=== PATIENT | female | born 1965 | race African-American/Black ===

== ENCOUNTER 2021-10-13 12:22 | Emergency (ER) | payer BC, SELFPAY ==
--- NOTE | ~2021-10-13 | CT_ITS ---
EXAMINATION: CT HEAD WITHOUT CONTRAST CLINICAL INFORMATION: Trauma. COMPARISON: None TECHNIQUE: Contiguous axial imaging was performed from the skull base to vertex without intravenous administration of contrast. This CT examination was performed using dose optimization techniques as appropriate, variously including the following: *Automated exposure control *Adjustment of mA and/or kV according to patient size (this includes techniques or standardized protocols for targeted exams where dose is matched to indication/reason for exam; i.e. extremities or head) *Use of iterative reconstruction technique DLP: 682 mGy-cm FINDINGS: There is no evidence of acute intracranial hemorrhage or territorial infarction. No abnormal mass effect or midline shift is seen. Garber to white matter differentiation is well preserved. No extra-axial fluid collections are identified. The ventricles are normal in size. There is no abnormal attenuation within the brain parenchyma. Partially empty sella The osseous structures and soft tissues are normal. The mastoid air cells and visualized portions of the paranasal sinuses are well aerated. CT/CT head/brain wo con IMPRESSION: * No acute intracranial pathology. * Incidental note made of a partially empty sella. This can be seen as an isolated incidental finding with no clinical significance, however can also be seen in the setting of idiopathic intracranial hypertension.
[2021-10-13 14:05] VITALS: BP 133/84; PULSE 80; RESP 18; TEMP 37; O2SAT 98; BMI 29.9
--- NOTE | 2021-10-13 15:45 | ED.HEATRA ---
HPI - Head Injury General Chief complaint: Head Injury Stated complaint: Head inj 10/11 Time Seen by Provider: 10/13/21 15:36 Source: patient Mode of arrival: ambulatory Limitations: no limitations History of Present Illness HPI Narrative: 56-year-old female presenting to the ED with complaints of intermittent head pain / headaches with associated intermittent blurry vision, difficulty concentrating and intermittent nausea for the past 2 days worse today after Tuesday she was loading something onto a car and sustained a head injury. She denies loss of consciousness or being on any blood thinners. She denies neck injury or pain. She denies any other injuries complaints or concerns at this time. Complaint: head injury and head pain Onset (ago): day(s) (2) Place: other Loss of Consciousness: no Location of injury: frontal Severity: mild Quality: aching Radiation: none Other Injuries: none Associated symptoms: nausea Related Data Previous Rx's Medication Instructions Recorded ondansetron 4 mg disintegrating 4 mg PO Q6H nausea and vomiting 10/13/21 tablet #14 tabs Allergies Allergy/AdvReac Type Severity Reaction Status Date / Time No Known Allergies Allergy Verified 10/13/21 14:04 [No Known Allergies*] Review of Systems Review of Systems: Constitutional : No changes in activity, No lethargy, No recent prior head injury, No agitation, No increased fussiness ENT/Mouth : No Ear Pain, No Nasal discharge/drainage Eyes: + intermittent blurry vision, No Eye Pain, No Swelling, No Redness, No Foreign Body Cardiovascular : No Chest Pain, No SOB Respiratory : No Cough Gastrointestinal : + Nausea, No Vomiting, No abdominal Pain Genitourinary : No Dysuria, No Urinary Frequency, No Urinary Incontinence, No Urgency, No Flank Pain Musculoskeletal : No joint pain, No neck stiffness, No back pain/injury Skin : No lacerations Neuro : No unsteady gait, No Paresthesias, No Loss of Consciousness, No altered mental status, No dizziness, + Headache due to head injury Denies past medical history of HIV, recent trauma, coagulopathy, recent spinal/ epidural procedure, new medication, URI symptoms, close contacts with similar symptoms, tick bite, or known CO2 exposure. Yes all other systems are reviewed and are negative PMFSH Past Medical History Attestation statement: The following information was validated with the patient. Source: old records reviewed and nursing notes reviewed Social History Social History Advance Directives: No Advance Directives Information Provided: Yes Physical Exam Vital Signs: Vital Signs: Last Vital Signs Temp 98.6 F 10/13/21 14:05 Pulse 80 10/13/21 14:05 Resp 18 10/13/21 14:05 BP 133/84 10/13/21 14:05 Pulse Ox 98 10/13/21 14:05 O2 Del Method 10/13/21 14:05 BMI result Body Mass Index 29.9 Vital signs have been reviewed as normal and appeared to be correct. Blood pressure normal. Heart rate normal. Respiration rate normal. Temperature normal. Oxygen saturation normal. Appearance: Alert. Oriented X3. No acute distress. Head: Normal external exam. Normocephalic. Atraumatic. Able to rotate head bilaterally. Eyes: PERRLA. EOMI. No nystagmus noted. Conjunctiva and sclera normal. Eyelids normal. Corneal reflex normal. ENT: EAC normal. TM's Normal. Hearing normal. Pharynx normal. Uvula midline. tongue midline. Moist mucous membranes. No trismus noted. No drooling noted. No muffled voice noted. Neck: Normal inspection. Neck supple. FROM. No adenopathy. Thyroid Normal. No meningeal signs. No neck mass noted. CVS: Normal heart rate and rhythm. Heart sound normal. No murmurs noted. Pulses normal throughout. Respiratory: No respiratory distress. Painless inspiration. Breath sounds normal. No wheezes/rales/rhonchi noted. Chest nontender. No accessory muscle usage noted or decreased air movement noted. Back: Full range of motion noted. Skin: Skin warm and dry. Normal skin color. Normal skin turgor. No rashes/lesions/lacerations noted. Extremities: Extremities exhibit normal range of motion. Extremities nontender. Able to shrug shoulders bilaterally and keep up against resistance. Neuro: Oriented X 3. No motor deficit. No sensory deficit. Reflexes normal. Moving all extremities. No focal motor deficits. Cranial nerves II-XI intact bilaterally. Facial strength normal. Normal cognition. Speech normal. Gait normal. Strength 5/5 throughout. Muscle tone normal throughout. Course Course Course Narrative: Patient most likely post concussive syndrome. Will obtain a CT scan of brain without contrast if negative will DC home with symptomatic treatment instructions return if any new or worsening symptoms. Patient understands agrees with this plan. Reevaluation(s) Reevaluation #1: CT scan negative for any acute processes although incidentally note made of partially empty sella otherwise no other acute processes. Therefore printed out the results and given to the patient explained to her that she should follow-up with her PCP for further evaluation treatment. Patient understands agrees with this plan. Time: 16:26 [facility] - Head Injury Medical Records Attestation: I reviewed the patient's medical records. Imaging Data CT scan of brain without contrast: Attestation: I personally reviewed and interpreted this imaging study as follows: Radiologist's impression: DLP: 682 mGy-cm FINDINGS: There is no evidence of acute intracranial hemorrhage or territorial infarction. No abnormal mass effect or midline shift is seen. Garber to white matter differentiation is well preserved. No extra-axial fluid collections are identified. The ventricles are normal in size. There is no abnormal attenuation within the brain parenchyma. Partially empty sella The osseous structures and soft tissues are normal. The mastoid air cells and visualized portions of the paranasal sinuses are well aerated. ? CT/CT head/brain wo con IMPRESSION: *? No acute intracranial pathology. *? Incidental note made of a partially empty sella. This can be seen as an isolated incidental finding with no clinical significance, however can also be seen in the setting of idiopathic intracranial hypertension. Discharge Plan Discharge Clinical Impression: Closed head injury, Postconcussion syndrome, Empty sella turcica Patient Disposition: Home, Self-Care Instructions: Head Injury (ED), Post Concussion Syndrome (ED) Prescriptions: New ondansetron 4 mg tablet,disintegrating 4 mg PO Q6H Qty: 14 0RF Referrals: Physician,Unknown J [Primary Care Provider] - 2 days (your pcp) Stand Alone Forms: Work/School Release
== END 2021-10-13 16:34 | disposition home or self-care (01) ==
PROVIDERS: Emergency Provider Student in an Organized Health Care Education/Training Program
DX: S06.0X0A Concussion without loss of consciousness, initial encounter (principal); W22.8XXA Striking against or struck by other objects, initial encounter; E23.6 Other disorders of pituitary gland; Y93.89 Activity, other specified; Y92.810 Car as the place of occurrence of the external cause; Y99.9 Unspecified external cause status
CPT/HCPCS: 70450; 99282; 99284

== ENCOUNTER 2023-02-25 10:50 | Outpatient (AMB) | payer BC, SELFPAY ==
--- NOTE | 2023-02-25 11:36 | AM.OFFWIN_ITS ---
Intake Vital Signs 02/25/23 11:49 Height 5 ft 5 in Weight 180 lb BMI 30.0 BP 126/70 Blood Pressure Location Rt brachial Position Sitting Pulse 97 Pulse Source Pulse Oximeter Temp 97.8 F Temp Source Temporal Artery Scan Pulse Oximetry (%) 100 Oxygen Delivery Method Room Air Intake Visit Reasons: EP, sore throat, cough ([phone]) Intake Note: Pt is here c/o sore throat, and cough. Patient Tobacco Use Status: Never used Tobacco Allergies No Known Allergies [No Known Allergies*] Allergy (Verified 02/25/23 11:36) HPI HPI Comments History of Present Illness Details This is a 57-year-old female who presents to the office today for sick visit. Patient complaining of viral URI symptoms x1 week including nasal congestion, rhinorrhea, sore throat, myalgias, and dry cough. She denies any fevers or patient reports being exposed to COVID-19 at work and she is requesting further testing. [facility] Social History Patient Tobacco Use Status: Never used Tobacco Review of Systems Const All systems reviewed & are unremarkable except as noted in HPI and below Reports no additional complaints Eyes Reports no additional complaints ENT Reports no additional complaints Card Reports no additional complaints Resp Reports no additional complaints GI Reports no additional complaints Reports no additional complaints Musc Reports no additional complaints Skin/Breast Reports system reviewed and no additional complaints, except as documented Neuro Reports no additional complaints Psych Reports no additional complaints Endo Reports no additional complaints Bill/Lymph Reports no additional complaints Aller/Immun Reports no additional complaints Physical Exam Vital Signs: Last Vital Signs Temp 97.8 F 02/25/23 11:49 Pulse 97 02/25/23 11:49 BP 126/70 02/25/23 11:49 Pulse Ox 100 02/25/23 11:49 Oxygen Delivery Method Room Air 02/25/23 11:49 BMI result Body Mass Index 30.0 Const Other: Vital signs reviewed. Constitutional: Non-toxic appearing. No acute distress. Well-developed and well-nourished. HEENT: Normocephalic and atraumatic. Tympanic membranes without erythema, edema, or bulging bilaterally. External auditory canals without erythema or edema bilaterally. Moist mucous membranes. No pharyngeal erythema or exudates. Skin: Warm and dry. No rashes or lesions noted. Neck: Full and painless range of motion. No cervical lymphadenopathy. Cardio: Regular rate and rhythm. No murmurs, gallops, or rubs. No lower extremity edema. No JVD. Pulmonary: No respiratory distress. No accessory muscle usage. Clear to auscultation bilaterally without wheezing, crackles, or rhonchi. Gastrointestinal: Soft, nontender, and nondistended in all 4 quadrants. Normoactive bowel sounds in all 4 quadrants. Genitourinary: No CVA tenderness. Musculoskeletal: Normal range of motion in joints throughout the body. No deformity or other signs of injury. Neuro: Alert and oriented x4. Cranial nerves 2-12 grossly intact. No focal deficits appreciated. Psych: Normal mood and affect. Results AMB Rapid Strep AMB Rapid Strep Negative Last Edit by Purnima Timmons CMA on 02/25/23 11:56 Results Reviewed Results Reviewed: Laboratory Last Values Strep Scn Rapid Clinic Negative 02/25/23 11:55 Assessment & Plan Assessment & Plan (1) Viral URI with cough: Code(s): J06.9 - Acute upper respiratory infection, unspecified Plan This is a 57-year-old female presenting to the office complaining of viral URI symptoms x1 week. She reports contact with COVID-19 at work and she is requesting testing. COVID/flu/ RSV sent. History and physical most consistent with a viral upper respiratory tract infection. Patient was reassured this is a self-limiting illness. Recommended symptomatic management including rest, increased fluids, advil/tylenol for pain/fever, and over the counter throat lozenges/decongestants. Patient advised to follow up here or go to the emergency room for worsening/persistent symptoms. Patient verbalized understanding and is agreeable with the plan. Orders: Orders AMB Rapid Strep Screen Today Z13.9 - Encounter for screening, unspecified Eladio Benites MD SARS-CoV2/FLU/RSV Today R09.89 - Other specified symptoms and signs involving the circulatory and respiratory systems CHACHO Mccormick Coding Level of Care Code Est Pt Level 3 (85822) Diagnoses Viral URI with cough J06.9
[2023-02-25 11:49] VITALS: BP 126/70; PULSE 97; TEMP 36.6; O2SAT 100
== END 2023-02-25 12:50 | disposition home or self-care (01) ==
PROVIDERS: Visit Provider Physician Assistant Medical
DX: J06.9 Acute upper respiratory infection, unspecified (principal); Z13.9 Encounter for screening, unspecified
CPT/HCPCS: 87880; 99213

== ENCOUNTER 2023-02-25 14:10 | Outpatient (REF) | payer BC, SELFPAY ==
[2023-02-25 15:46] LABS: Influenza A PCR NEGATIVE (Negative); Influenza B PCR NEGATIVE (Negative); Resp Syncy Virus RNA Qual PCR NEGATIVE (Negative); SARS COV2 PCR INHOUSE POSITIVE (Negative)
== END 2023-02-25 14:11 | disposition home or self-care (01) ==
LOC: HO.HMGCLNP 14:10
PROVIDERS: Visit Provider Physician Assistant Medical
DX: Z11.52 Encounter for screening for COVID-19 (principal); Z20.822 Contact with and (suspected) exposure to COVID-19; R09.89 Other specified symptoms and signs involving the circulatory and respiratory systems
CPT/HCPCS: 0241U

== ENCOUNTER 2023-03-07 11:26 | Outpatient (AMB) | payer BC, SELFPAY ==
[2023-03-07 13:13] VITALS: BP 110/72; PULSE 89; TEMP 36.7; O2SAT 98
--- NOTE | 2023-03-07 13:13 | MHC.OFFWIV ---
Intake Vital Signs 03/07/23 13:13 Height 5 ft 5 in Weight 180 lb BMI 30.0 BP 110/72 Blood Pressure Location Rt brachial Position Sitting Pulse 89 Pulse Source Pulse Oximeter Temp 98.1 F Temp Source Oral Pulse Oximetry (%) 98 Oxygen Delivery Method Room Air Intake Visit Reasons: EP COVID exposure nausea vomiting [phone] Intake Note: pt is here for c.o exposure to covid, nausea, vomiting, headache Patient Tobacco Use Status: Never used Tobacco Allergies No Known Allergies [No Known Allergies*] Allergy (Verified 03/07/23 13:14) Do you need a note to return to daycare/school/sports/work: Yes HPI EP COVID exposure nausea vomiting [phone] HPI Details Patient presents today for a sick visit. She was seen here on 02/25 for URI symptoms and Covid test was positive. She has been improving, however last night had severe nausea. Her employer would like to her to have another Covid test. She denies any other symptoms at this time. Reports Covid symptoms have been slowly resolving. [facility] Social History Patient Tobacco Use Status: Never used Tobacco Review of Systems Const All systems reviewed & are unremarkable except as noted in HPI and below Physical Exam Vital Signs: Last Vital Signs Temp 98.1 F 03/07/23 13:13 Pulse 89 03/07/23 13:13 BP 110/72 03/07/23 13:13 Pulse Ox 98 03/07/23 13:13 Oxygen Delivery Method Room Air 03/07/23 13:13 BMI result Body Mass Index 30.0 Const General: cooperative, healthy appearing, comfortable and no acute distress HEENT Head: Yes normal to inspection Ears: hearing grossly normal bilaterally General nose exam: Normal external nose present Mouth: Normal oral and palatal mucosa present and moist mucous membranes Throat: Yes posterior oropharynx normal Neck Neck: Yes no lymphadenopathy Resp Effort & Inspection: normal respiratory effort Auscultation: clear to auscultation bilaterally Cardio Palpation: normal PMI Rate: regular rate Rhythm: regular rhythm Skin General skin exam: no rashes or lesions noted Extrem General: Yes capillary refill normal and Yes no clubbing, cyanosis or edema Psych Appearance: grossly normal Mental Status: mental status grossly normal Speech and movement: Normal speech and movement present Assessment & Plan Assessment & Plan (1) SARS-CoV-2 positive: Code(s): U07.1 - COVID-19 Plan: We discussed testing for Covid and likely result of another positive result given her recent illness. She would still like to have another test done as we can also test for flu/rsv, and she did have new symptoms last night with the nausea and mild headache. I provided her with a work note discussing the CDC recommendations for isolation, and when she can return to work. If she does not continue to improve with she should return to the clinic. I will also prescribe her Zofran should she experiences more nausea. All questions were answered and patient agrees to plan. (2) Nausea: Code(s): R11.0 - Nausea Plan: Zofran as above. Orders: Orders SARS-CoV2/FLU/RSV Today R11.0 - Nausea, U07.1 - COVID-19 Medications: New ondansetron HCl 4 mg PO Q8H PRN 12 tabs 0RF nausea and vomiting R11.0 - Nausea Coding Level of Care Code Est Pt Level 3 (25470) Diagnoses SARS-CoV-2 positive U07.1 Nausea R11.0
== END 2023-03-07 13:47 | disposition home or self-care (01) ==
PROVIDERS: Visit Provider Nurse Practitioner Family
DX: U07.1 COVID-19 (principal); R11.0 Nausea
CPT/HCPCS: 99213

== ENCOUNTER 2023-03-07 17:02 | Outpatient (REF) | payer BC, SELFPAY ==
[2023-03-07 17:57] LABS: Influenza A PCR NEGATIVE (Negative); Influenza B PCR NEGATIVE (Negative); Resp Syncy Virus RNA Qual PCR NEGATIVE (Negative); SARS COV2 PCR INHOUSE POSITIVE (Negative)
== END 2023-03-07 17:03 | disposition home or self-care (01) ==
LOC: HO.LNP 17:02
PROVIDERS: Visit Provider Nurse Practitioner Family
DX: Z11.52 Encounter for screening for COVID-19 (principal); Z20.822 Contact with and (suspected) exposure to COVID-19; R11.0 Nausea
CPT/HCPCS: 0241U